=== PATIENT | female | born 1965 | race Two or more races ===

== ENCOUNTER → 2022-09-09 | Outpatient (CLI) | payer OTHER ==
[~2022-09-09] MED LIST: CLON0.5T4 PO; METF-881 PO; VENL37.591 PO
== END | disposition home or self-care (01) ==
LOC: EDBD → LAB 10:14
PROVIDERS: ATTEND Specialist
DX: Z01.812 Encounter for preprocedural laboratory examination (principal); Z20.822 Contact with and (suspected) exposure to COVID-19
CPT/HCPCS: U0003; C9803

== ENCOUNTER 2022-09-14 05:51 | Day surgery (SDC) | payer OTHER ==
[2022-09-14 06:38] VITALS: BP 109/62
[2022-09-14] MEDS ORDERED: MIDAZOLAM HCL 2 MG/2ML VIAL ONE (07:27)
[2022-09-14] MEDS ORDERED: FENTANYL PF 100MCG/2ML AMPUL ONE (07:27)
[2022-09-14] MEDS ORDERED: BUPIVACAINE 0.5 % PF 150 MG/30 ML VIAL ONE (08:25)
[2022-09-14 09:32] VITALS: BP 120/71
[2022-09-14] MEDS ORDERED: METF-881 PO (11:00)
[2022-09-14] MEDS ORDERED: CLON0.5T4 PO (11:00)
[2022-09-14] MEDS ORDERED: VENL37.591 PO (11:00)
[2022-09-14 12:30] VITALS: BP 123/74
== END 2022-09-14 16:00 | disposition home or self-care (01) ==
LOC: DS 05:51 → MEDSG1 05:53 → UNDOADMIN 05:53 → MED 09:42 → MEDSG1 09:42 → MED 09:44 → UNDODISIN 12:42 → DS 16:00
PROVIDERS: ATTEND Specialist
DX: G56.01 Carpal tunnel syndrome, right upper limb (principal); Z20.822 Contact with and (suspected) exposure to COVID-19; E11.9 Type 2 diabetes mellitus without complications; F41.9 Anxiety disorder, unspecified; Z98.890 Other specified postprocedural states; Z79.899 Other long term (current) drug therapy
CPT/HCPCS: 82962-TC; A4565; A6402; G0378; J0690; J2250; J2704; J3010; J3490; J7030